=== PATIENT | female | born 1960 | race Caucasian/White ===

== ENCOUNTER 2021-12-05 10:31 | Outpatient (CLI) | payer OTHER | END 2021-12-05 10:32 | disposition home or self-care (01) | LOC: BICMAMMO 10:31 | PROVIDERS: ATTEND Family Medicine | DX: Z12.31 Encounter for screening mammogram for malignant neoplasm of breast (principal); Z91.89 Other specified personal risk factors, not elsewhere classified; Z80.3 Family history of malignant neoplasm of breast | CPT/HCPCS: 77063; 77067 ==

== ENCOUNTER 2022-04-29 08:55 | Outpatient (CLI) | payer OTHER ==
[2022-04-29 10:33] LABS: Hemoglobin 13.8 g/dL (12.0-15.5); Mean Corpuscular HGB CONC 32.9 g/dL (32.0-36.0); Mean Corpuscular Hemoglobin 30.9 pg (27.0-33.0); Mean Corpuscular Volume 94.2 fl (81.6-98.3); Platelet Count 233 10x3/uL (150-450); RBC Distribution Width 13.2 % (11.5-14.5); Red Blood Cell (RBC) Count 4.46 10x6/uL (3.90-5.03); White Blood Cell (WBC) Count 4.6 10x3/uL (3.5-10.5)
[2022-04-29 10:54] LABS: INR-International Normal Ratio 0.9; PTT 26.7 sec (22.0-33.0); Prothrombin Time 10.1 sec (9.5-12.1)
[2022-04-29 10:59] LABS: Anion Gap 13 mmol/L (10-20); BUN (Urea Nitrogen) 14 mg/dL (9.8-20.1); Calc. Creatinine Clearance 0 mL/min (70-130); Calcium 9.5 mg/dL (7.8-10.44); Carbon Dioxide 27 mmol/L (23-31); Chloride 107 mmol/L (98-107); Estimated GFR 71; Glucose 88 mg/dL (80-115); Potassium 4.4 mmol/L (3.5-5.1); Sodium 143 mmol/L (136-145)
== END 2022-04-29 08:56 | disposition home or self-care (01) ==
LOC: LABBT 08:55
PROVIDERS: ATTEND Internal Medicine Cardiovascular Disease
DX: Z01.818 Encounter for other preprocedural examination (principal); I48.0 Paroxysmal atrial fibrillation; I51.9 Heart disease, unspecified; Z79.01 Long term (current) use of anticoagulants; Z20.822 Contact with and (suspected) exposure to COVID-19
CPT/HCPCS: 80048; 85027; 85610; 85730; 87811; 93005; 93010

== ENCOUNTER 2022-05-04 06:04 | Day surgery (SDC) | payer OTHER ==
[2022-04-30 11:18] VITALS: BMI 40.3
[2022-05-04] MEDS ORDERED: Heparin 25,000 units/D5W 500 ML ONE (06:41)
[2022-05-04] MEDS ORDERED: Heparin 10,000 UNITS/ 10 ML VIAL ONE (06:41)
[2022-05-04] MEDS ORDERED: Protamine Sulfate 50 MG/5 ML VIAL ONE (06:41)
[2022-05-04] MEDS ORDERED: SUGAMMADEX SODIUM 200 MG/2 ML VIAL ONE (07:15)
[2022-05-04] MEDS ORDERED: fentaNYL Citrate/PF 100 MCG/2 ML SYRINGE ONE (07:15)
[2022-05-04] MEDS ORDERED: Famotidine/PF 20 mg/2ml Vial ONE (07:15)
[2022-05-04] MEDS ORDERED: Metoclopramide HCl 10 MG/2 ML VIAL ONE (07:35)
[2022-05-04] MEDS ORDERED: PROPOFOL 200 MG/20 ML VIAL ONE (07:35)
[2022-05-04] MEDS ORDERED: Lidocaine 1% PF 5 ML VIAL ONE (07:35)
[2022-05-04] MEDS ORDERED: Ondansetron PF 4 MG/2 ML Vial ONE (07:35)
[2022-05-04] MEDS ORDERED: Phenylephrine 10 MG/ML VIAL ONE (07:35)
[2022-05-04] MEDS ORDERED: Rocuronium Bromide 10 MG/ML (10ML VIAL) ONE (07:35)
[2022-05-04] MEDS ORDERED: Isoproterenol 0.2 MG/1 ML AMP ONE (08:22)
[2022-05-04] MEDS ORDERED: Ketorolac Tromethamine 30 MG/ML VIAL ONE (12:42)
== END 2022-05-04 13:30 | disposition home or self-care (01) ==
LOC: SDC 06:04
PROVIDERS: ATTEND Internal Medicine Cardiovascular Disease
PROC: 4A0234Z Measurement of Cardiac Electrical Activity, Percutaneous Approach (ICD-10-PCS; principal; 2022-05-04)
PROC: 4A023FZ Measurement of Cardiac Rhythm, Percutaneous Approach (ICD-10-PCS; principal; 2022-05-04)
PROC: 02583ZZ Destruction of Conduction Mechanism, Percutaneous Approach (ICD-10-PCS; principal; 2022-05-04)
PROC: 02K83ZZ Map Conduction Mechanism, Percutaneous Approach (ICD-10-PCS; principal; 2022-05-04)
DX: I48.19 Other persistent atrial fibrillation (principal); D86.0 Sarcoidosis of lung; I10 Essential (primary) hypertension; E78.5 Hyperlipidemia, unspecified; E66.01 Morbid (severe) obesity due to excess calories; Z68.41 Body mass index [BMI] 40.0-44.9, adult; Z87.891 Personal history of nicotine dependence
CPT/HCPCS: 85347; 93005; 93613; 93622; 93623; 93656; 93657; 93662; C1732; C1759; C1760; J1644; J1885; J2370; J2405; J2704; J2720; J2765; S0028

== ENCOUNTER 2023-01-11 10:15 | Emergency (ER) | payer OTHER ==
[2023-01-11 11:05] LABS: #Lymphocytes 2.1 thou/uL (1.20-3.40); #Monocytes 0.4 thou/uL (0.11-0.59); #Neutrophils 2.2 thou/uL (1.40-6.50); %Eosinophils 2.4 % (0.0-10.0); %Lymphocytes 43.9 % (21.0-51.0); %Monocytes 7.5 % (0.0-10.0); %Neutrophils 45.4 % (42.0-75.0); Hemoglobin 14.1 g/dL (12.0-16.0); Mean Corpuscular HGB CONC 33.6 g/dL (32.0-36.0); Mean Corpuscular Hemoglobin 31.5 pg (27.0-31.0); Mean Corpuscular Volume 93.7 fl (78.0-98.0); Mean Platelet Volume 8.7 fL (7.4-10.4); Platelet Count 233 10x3/uL (130-400); RBC Distribution Width 12.2 % (11.5-14.5); Red Blood Cell (RBC) Count 4.49 mill/uL (4.20-5.40); White Blood Cell (WBC) Count 4.8 10x3/uL (4.8-10.8)
[2023-01-11 11:06] LABS: #Eosinphils 0.1 thou/uL (0.0-0.7)
[2023-01-11 11:30] LABS: Anion Gap 13 mmol/L (10-20); BUN (Urea Nitrogen) 11 mg/dL (9.8-20.1); Calc. Creatinine Clearance 0 mL/min (70-130); Carbon Dioxide 22 mmol/L (23-31); Chloride 108 mmol/L (98-107); Potassium 4.2 mmol/L (3.5-5.1); Sodium 139 mmol/L (136-145)
[2023-01-11 11:31] LABS: ALT (SGPT) 34 U/L (8-55); AST (SGOT) 32 U/L (5-34); Albumin 4.2 g/dL (3.4-4.8); Alkaline Phosphatase 84 U/L (40-110); Bilirubin, Total 0.4 mg/dL (0.2-1.2); Calcium 9.8 mg/dL (7.8-10.44); Estimated GFR 82; Globulin 3.1 g/dL (2.4-3.5); Glucose 97 mg/dL (80-115); Protein, Total 7.3 g/dL (5.8-8.1)
[2023-01-11] MEDS ORDERED: HYDROcodone/Acetaminophen 5/325 mg Tablet ONE (11:31)
[2023-01-11 12:33] LABS: Troponin I Less than 0.010 ng/mL (< 0.028)
[2023-01-11 13:23] LABS: Bilirubin Negative (Negative); Blood, Urine 2+ (Negative); Clarity Clear (Clear); Glucose, Urine (Dipstick) Normal (Negative); Ketone, Urine Negative (Negative); Leukocyte Negative Leu/uL (Negative); Nitrite Negative (Negative); Protein, Urine (Dipstick) Negative (Neg-Trace); RBC/HPF 0-3 HPF (0-3); Specific Gravity, Urine 1.005 (1.002-1.036); Squamous Epithelial None Seen HPF (0-3); Urobilinogen Normal mg/dL (Less than 2); WBC/HPF 0-3 HPF (0-3); pH, Urine 6.5 (5.0-9.0)
[2023-01-11 13:35] LABS: Bacteria/HPF 1+ HPF (None Seen)
== END 2023-01-11 13:44 | disposition home or self-care (01) ==
LOC: ERS 10:15
DX: S01.81XA Laceration without foreign body of other part of head, initial encounter (principal); S60.221A Contusion of right hand, initial encounter; I10 Essential (primary) hypertension; W18.30XA Fall on same level, unspecified, initial encounter
CPT/HCPCS: 12011; 36415; 70450; 80053; 81003; 81015; 84484; 85025; 93005; 94760

== ENCOUNTER 2023-01-12 14:46 | Outpatient (CLI) | payer OTHER | END 2023-01-12 14:47 | disposition home or self-care (01) | LOC: BICRAD 14:46 | PROVIDERS: ATTEND Family Medicine | DX: M25.531 Pain in right wrist (principal) ==

== ENCOUNTER 2023-01-19 12:12 | Outpatient (CLI) | payer OTHER | END 2023-01-19 12:13 | disposition home or self-care (01) | LOC: BICMAMMO 12:12 | PROVIDERS: ATTEND Family Medicine | DX: Z12.31 Encounter for screening mammogram for malignant neoplasm of breast (principal) | CPT/HCPCS: 77063; 77067 ==

== ENCOUNTER 2023-01-27 08:04 | Outpatient (CLI) | payer BC | END 2023-01-27 08:05 | disposition home or self-care (01) | LOC: BICCT 08:04 | DX: M18.11 Unilateral primary osteoarthritis of first carpometacarpal joint, right hand (principal); S63.216A Subluxation of metacarpophalangeal joint of right little finger, initial encounter ==

== ENCOUNTER 2023-01-29 13:01 | Outpatient (CLI) | payer BC | END 2023-01-29 13:02 | disposition home or self-care (01) | LOC: TBSIIMAG 13:01 | DX: M18.11 Unilateral primary osteoarthritis of first carpometacarpal joint, right hand (principal); S63.216A Subluxation of metacarpophalangeal joint of right little finger, initial encounter; S63.8X1A Sprain of other part of right wrist and hand, initial encounter; R60.0 Localized edema ==

== ENCOUNTER 2023-02-02 12:27 | Outpatient (CLI) | payer BC | END 2023-02-02 12:28 | disposition home or self-care (01) | LOC: TBSIIMAG 12:27 | PROVIDERS: ATTEND Family Medicine | DX: R90.89 Other abnormal findings on diagnostic imaging of central nervous system (principal); I67.82 Cerebral ischemia | CPT/HCPCS: 70551 ==

== ENCOUNTER 2023-02-03 14:49 | Outpatient (CLI) | payer BC | END 2023-02-03 14:50 | disposition home or self-care (01) | LOC: BICRAD 14:49 | PROVIDERS: ATTEND Family Medicine | DX: Z01.818 Encounter for other preprocedural examination (principal) | CPT/HCPCS: 71046 ==

== ENCOUNTER → 2024-02-23 | Day surgery (SDC) | payer OTHER ==
[2024-02-21 09:42] VITALS: BMI 41.9
== END | disposition home or self-care (01) ==
LOC: SDC 06:42
PROVIDERS: ATTEND Internal Medicine Cardiovascular Disease
PROC: 4A0274Z Measurement of Cardiac Electrical Activity, Via Natural or Artificial Opening (ICD-10-PCS; principal; 2024-02-23)
PROC: 4A027FZ Measurement of Cardiac Rhythm, Via Natural or Artificial Opening (ICD-10-PCS; principal; 2024-02-23)
PROC: 02583ZZ Destruction of Conduction Mechanism, Percutaneous Approach (ICD-10-PCS; principal; 2024-02-23)
DX: I48.0 Paroxysmal atrial fibrillation (principal); I48.92 Unspecified atrial flutter; D86.9 Sarcoidosis, unspecified; D64.9 Anemia, unspecified; F41.9 Anxiety disorder, unspecified; I25.10 Atherosclerotic heart disease of native coronary artery without angina pectoris; I11.9 Hypertensive heart disease without heart failure; E78.5 Hyperlipidemia, unspecified; G43.909 Migraine, unspecified, not intractable, without status migrainosus; E66.01 Morbid (severe) obesity due to excess calories; Z68.41 Body mass index [BMI] 40.0-44.9, adult; Z79.01 Long term (current) use of anticoagulants; Z87.891 Personal history of nicotine dependence; Z79.899 Other long term (current) drug therapy; Z98.890 Other specified postprocedural states; Z86.79 Personal history of other diseases of the circulatory system
CPT/HCPCS: 80048; 85027; 85347; 85610; 85730; 93622; 93623; 93656; 93657; C1732; C1759; C1760; C1884; C1893; C1894; J0282; J1100; J1644; J2704; J2720; J3010